=== PATIENT | female | born 1980 | race Caucasian/White ===

== ENCOUNTER → 2020-06-24 10:47 | Outpatient (BNVA) | payer BC, SELFPAY | PROVIDERS: Visit Provider Nurse Practitioner Family | DX: G40.909 Epilepsy, unspecified, not intractable, without status epilepticus (principal) | CPT/HCPCS: 80185 ==

== ENCOUNTER → 2020-06-30 09:46 | Outpatient (BNVA) | payer BC, SELFPAY | PROVIDERS: Visit Provider Nurse Practitioner Family | DX: G40.909 Epilepsy, unspecified, not intractable, without status epilepticus (principal) | CPT/HCPCS: 80185 ==

== ENCOUNTER → 2022-10-11 13:19 | Outpatient (BNVA) | payer BC, SELFPAY | PROVIDERS: PCP Nurse Practitioner Family; Visit Provider Nurse Practitioner Family | DX: J02.9 Acute pharyngitis, unspecified (principal) | CPT/HCPCS: 87880 ==

== ENCOUNTER 2022-10-25 13:14 | Outpatient (CLI) | payer BC, SELFPAY ==
--- NOTE | 2022-10-25 13:45 | US_ITS ---
WS: [id number] ULTRASOUND SOFT TISSUES lateral RIGHT ankle. HISTORY: R22.41 - Localized swelling, mass and lump, right lower limb COMPARISON: None available. TECHNIQUE: 2-D and color Doppler imaging is submitted. Hypoechoic well-circumscribed hypervascular soft tissue mass in the RIGHT lower extremity. This corre sponds to the palpable abnormality. This mass measures 4.7 x 2.0 x 5.3 cm. This is a very superficial mass. On the imaging submitted does not appear to be connected to a tendon. Marked increased vascula rity. US/US soft tissue/extremity [id number] IMPRESSION: Solid hypervascular mass in the RIGHT lateral ankle. Mass measures 4.7 x 2.0 x 5.3 cm. Differential includes malignant and benign etiologies. Sarcoma needs to be excluded. Patient did provide a history that this has been previously biops ied and negative. Additional etiologies to consider are fibroma, neuroma and le iomyoma.
== END 2022-10-25 13:15 | disposition home or self-care (01) ==
PROVIDERS: PCP Nurse Practitioner Family; Visit Provider Nurse Practitioner Family
DX: R22.41 Localized swelling, mass and lump, right lower limb (principal)
CPT/HCPCS: 76882; 87880

== ENCOUNTER 2022-12-20 09:28 | Day surgery (SDC) | payer BC, SELFPAY ==
[2022-12-17 10:10] VITALS: BMI 29.0
[2022-12-20] VITALS (11 sets, daily range): BP systolic 100–129; BP diastolic 72–88; PULSE 69–89; RESP 16–18; TEMP 36.3–37.3; O2SAT 95–100; BMI 29.0
[2022-12-20] MEDS: sodium chloride 0.9% 1,000 ML 30 ML IV (10:23)
--- NOTE | 2022-12-20 10:25 | PM.HP ---
Providers/Chief Complaint Primary Care Provider: GILBERT Alexandra Chief Complaint: [id number] R22.41 History of Present Illness Lina French is a 42 year old female Medications/Allergies Home Medications Medication Instructions Recorded Confirmed Last Taken Type phenytoin sodium extended 30 mg 30 mg PO BID 10/28/22 12/20/22 12/19/22 History capsule (Dilantin) Allergies Allergy/AdvReac Type Severity Reaction Status Date / Time phenobarbital Allergy rash Verified 12/17/22 10:09 PFSH Acute PFSH: Medical History Seizure disorder Surgical History History of repair of anterior cruciate ligament of right knee Hx of cholecystectomy Family History Father Cancer prostate cancer Social History Smoking and tobacco status: never smoked Vitals/I&O/Wt Last Vital Signs Temp 97.3 F L 12/20/22 10:15 Pulse 78 12/20/22 10:15 Resp 18 12/20/22 10:15 BP 129/88 12/20/22 10:15 Pulse Ox 99 12/20/22 10:15 O2 Del Method Room Air 12/20/22 10:15 Weight last 48 hrs Weight 180 lb A&P Assessment and plan (1) Subcutaneous mass of right lower leg: Plan Excision of subcutaneous mass right leg Attestations Medical Necessity Statement*: Home Coding Level of Care Code Acute Code for Chg Fwd Diagnoses Subcutaneous mass of right lower leg R22.41
[2022-12-20 10:28] LABS: OR HCG Qualitative Urine Negative (Negative)
[2022-12-20] MEDS: ceFAZolin 2,000 MG in sodium chloride 0.9% (plus) 50 ML 100 MG IV (13:30)
[2022-12-20] MEDS: lidocaine-epi 2% 20 mL INJ INJECTION (13:50)
--- NOTE | 2022-12-20 14:45 | PM.OP ---
Operative Report Date of procedure: December 20, 2022 Pre-op diagnosis: Subcutaneous mass right leg Post-op diagnosis: same Procedure done: Excision of subcutaneous mass right leg Specimens removed/disposition: Skin ellipse with subcutaneous mass right leg Surgeon: Dr. Nagi Calle, Anesthesia: General Estimated blood loss (mL): 5 Complications: None apparent Brief History: This very pleasant 42-year-old female who presents my office with a subcutaneous mass of her right leg. Biopsy performed at an outside hospital revealed a benign mass. Excision was indicated. The risk and benefits were explained and documented. I specifically explained that it might not be able to close her skin due to the size of the mass and its location. Procedure: Patient was wheeled off to room placed on the OR table in supine position. General tracheal intubation was achieved by the department anesthesia. A timeout was performed. All present were in agreement. The right leg was inspected prepped and draped in usual sterile fashion. An elliptical at excision was performed transversely over the mass of the right lateral leg. Ellipse measured 10 cm x 5 cm. The mass was 5 cm in diameter. Dissection was carried down to the subcutaneous tissue and the mass was totally excised using Bovie cautery. 2-0 nylon was then used to make horizontal mattress sutures in the middle of the excision. I was unable to get the tissue entirely together so I left this area for 15 minutes for tissue creep. I then started at the corners of the excision and closed the skin with 3-0 nylon suture in an interrupted fashion simply. As I got more towards the center of the excision I placed interrupted 2-0 nylon vertical mattress sutures. After allowing adequate time for tissue creep the 2-0 nylon suture was removed and 0 nylon sutures were placed in an interrupted vertical mattress fashion. There was an area approximately 2 cm x 1 cm that could not totally be closed. Sterile bandages were applied. Patient tolerated procedure well.
--- NOTE | 2022-12-20 16:52 | ANE.PACU2 ---
Inpatient post-anesthesia follow up: Airway intact: Yes Vital signs: Temperature 97.8 F Pulse Rate 69 Respiratory Rate 17 Blood Pressure 115/77 Pulse Oximetry 100 Oxygen Delivery Me thod Room Air Oxygen Flow Rate 6 Fraction of Inspir ed Oxygen Hydration adequate: Yes Nausea and vomiting: No Pain level: 2 Mental status: Baseline
--- NOTE | 2022-12-20 16:53 | ANES.PREANE2 ---
Pre-Anesthetic Assessment Height/Weight: Height 1.68 m Weight 81.647 kg Temp Pulse Resp BP Pulse Ox O2 Del Method O2 Flow Rate 97.8 F 69 17 115/77 100 Room Air 6 12/20/22 15:50 12/20/22 15:50 12/20/22 15:50 12/20/22 15:50 12/20/22 15:50 12/20/22 15:50 12/20/22 14:52 Operation Date: 12/20/22 12:05 Proposed Procedures p [id number] excision right leg mass R22.41(Right) - Nagi Calle DO Familial anesthetic complications: none Was Beta Modesta taken within 24 hours: N/A Was Clonidine taken within 24 hours: N/A Last intake: Intake Last Liquid Date 12/19/22 Last Liquid Time 21:00 Last Solid Date 12/19/22 Last Solid Time 21:00 Social No alcohol and No tobacco Exam alert, oriented x 3, clear to auscultation bilaterally and regular rate & rhythm Airway Submandibular: within normal limits Cervical ROM: within normal limits Mallampati: Class I Dentition: full Neuropsych Seizure Anesthetic Plan ASA status: 2 Anesthesia: General Medications/Allergies Home Medications Medication Instructions Recorded Confirmed Last Taken Type phenytoin sodium extended 30 mg 30 mg PO BID 10/28/22 12/20/22 12/19/22 History capsule (Dilantin) docusate sodium 100 mg capsule 100 mg PO BID #14 caps 12/20/22 Unknown Rx ([facility]) hydrocodone 10 mg-acetaminophen 1 tab PO Q6H PRN pain #20 tabs 12/20/22 Unknown Rx 325 mg tablet Allergies Allergy/AdvReac Type Severity Reaction Status Date / Time phenobarbital Allergy rash Verified 12/17/22 10:09 REPLACED BY [facility] Anesthesia Medical History Seizure disorder Surgical History History of repair of anterior cruciate ligament of right knee Hx of cholecystectomy Family History Father Cancer prostate cancer Social History Smoking and tobacco status: never smoked Data Anesthesia Cardiac Studies: No Data to Display
== END 2022-12-20 16:20 | disposition home or self-care (01) ==
PROVIDERS: Anesthesiology; PCP Nurse Practitioner Family; Visit Provider Surgery
PROC: (CPT 11406; principal; 2022-12-20 12:05)
DX: D23.71 Other benign neoplasm of skin of right lower limb, including hip (principal)
CPT/HCPCS: 11406; 12034; 81025; 84703; 88304; 88342; J0690; J1100; J2250; J2405; J2704; J3010; J7030